=== PATIENT | female | born 1955 | race Caucasian/White ===

== ENCOUNTER 2016-09-08 21:24 | Emergency (ER) | payer OTHER ==
[~2016-09-08] VITALS: Ht 172.7 cm; Wt 56.8 kg
[~2016-09-08 21:24] MED LIST: CALC-507 PO; ERGO400T PO; GLUC100018 PO; LEVO112T4 PO; MULT-245 PO; OMEG1CAP6 PO; [UNRECOGNIZED DRUG - MIXTURE]
[2016-09-08 21:25] VITALS: BP 140/100
--- NOTE | 2016-09-09 07:47 | RAD ---
EXAM: Right fourth finger, 3 views. HISTORY: Trauma. COMPARISON: None. FINDINGS: Frontal, lateral and oblique views of the right finger are obtained. There is an ossicle along the dorsal aspect of the fourth proximal interphalangeal joint. No adjacent donor site is seen. There is surrounding soft tissue swelling. There are tiny ossicles along the ulnar aspect of the second distal interphalangeal joint, likely degenerative or the sequela of remote injury. IMPRESSION: Small ossicle along the dorsal aspect of the fourth proximal interphalangeal joint. This may be an avulsion fracture fragment of uncertain chronicity. Correlate for point tenderness in this region. There is surrounding soft tissue swelling. However, this also involves the second through fifth proximal and distal interphalangeal joints.
--- NOTE | 2016-09-09 19:50 | ED.ADGEN ---
Past History Past Medical History: Hypothyroid Past Surgical History: Other Alcohol Use: Occasionally Additional Alcohol Information: drinks wine daily Drug Use: None Adult General Chief Complaint Chief Complaint Ring finger injury HPI HPI Patient is a 61-year-old female presents with most right ring finger injury. Patient was walking her dog when it bolted catching the leash on her right ring finger. Patient reports feeling cracking sensation. Reports persistent diffuse right ring finger, pain swelling and tenderness localized over PIP joint. Denies other injury or complaint. Patient is not on anticoagulation therapy. Review of Systems Review of Systems ROS as per HPI. Allergies Allergies Allergies Coded Allergies Type Severity Reaction Last Updated Verified No Known Drug Allergies 03/24/15 No Physical Exam Physical Exam Constitutional: Well developed, well nourished, no acute distress, non-toxic appearance. [] HENT: Normocephalic, atraumatic, bilateral external ears normal, oropharynx moist, no oral exudates, nose normal. [] Eyes: PERRLA, EOMI, conjunctiva normal, no discharge. [] Neck: Normal range of motion, no tenderness, supple, no stridor. Cardiovascular:Heart rate regular rhythm, no murmur [] Lungs & Thorax: Bilateral breath sounds clear to auscultation Extremities: Right hand, ring finger, tenderness swelling with abrasion to dorsum of finger. No deformity or malalignment appreciated. Tenderness over PIP joint. Ring in place. Neurologic: Alert and oriented X 3, normal motor function, normal sensory function, no focal deficits noted. [] Psychologic: Affect normal, judgement normal, mood normal. [] Current Patient Data Vital Signs Vital Signs Date Time Temp Pulse Resp B/P Pulse Ox O2 Delivery O2 Flow Rate FiO2 09/08/16 21:25 97.8 69 16 95 Room Air EKG EKG [] Radiology/Procedures Radiology/Procedures [Right hand finger x-ray. Small avulsion fx over PIP.] Impressions: Right ring finger fx Course & Med Decision Making Course & Med Decision Making Pertinent Labs and Imaging studies reviewed. (See chart for details) [Isolated finger injury. Ring removed the nursing requested patient. Finger splinted.] Final Impression Final Impression [1. Right Fourth finger fracture] Problems: Dragon Disclaimer Dragon Disclaimer This electronic medical record was generated, in whole or in part, using a voice recognition dictation system. AMY GOLDMAN DO Sep 09, 2016 19:50
== END 2016-09-08 22:39 | disposition home or self-care (01) ==
LOC: ER 21:24
DX: S62.614A Displaced fracture of proximal phalanx of right ring finger, initial encounter for closed fracture (principal); E03.9 Hypothyroidism, unspecified; X58.XXXA Exposure to other specified factors, initial encounter; Y93.K1 Activity, walking an animal; Y99.8 Other external cause status; Y92.89 Other specified places as the place of occurrence of the external cause
CPT/HCPCS: 29130; 73140; 99284-25

== ENCOUNTER → 2020-12-27 | Outpatient (CLI) | payer MEDICARE, OTHER ==
--- NOTE | 2020-12-31 10:53 | RAD ---
DATE: 12/27/2020 EXAM: MAMMO ARLET SCREENING BILATERAL HISTORY: Screening COMPARISON: 06/28/2017, 07/11/2018, 06/26/2019 This study was interpreted with the benefit of Computerized Aided Detection (CAD). Breast Density: HETERO The breast parenchyma is heterogenously dense, which could reduce sensitivity of mammography. Breast parenchyma level C. FINDINGS: There is a 9 mm circumscribed nodule in the right breast slightly inferior and 1.7 cm posterior to the nipple on MLO view, likely localizing to 7:00 on CC view. There are 2 additional 5 mm circumscribed nodules in the right breast at 4:00 2 cm posterior to the nipple. No suspicious calcifications or architectural distortion. IMPRESSION: 3 nodules in the anterior right breast. Recommend spot compression CC and MLO views and possible ultrasound of the right breast to further evaluate. BI-RADS CATEGORY: 0 INCOMPLETE: NEEDS ADDITIONAL IMAGING EVALUATION AND/OR PRIOR MAMMOGRAMS FOR COMPARISON. RECOMMENDED FOLLOW-UP: ADD ADDITIONAL IMAGING PQRS compliance statement: Patient information was entered into a reminder system with a target due date for the next mammogram. Mammography is a sensitive method for finding small breast cancers, but it does not detect them all and is not a substitute for careful clinical examination. A negative mammogram does not negate a clinically suspicious finding and should not result in delay in biopsying a clinically suspicious abnormality. "Our facility is accredited by the [employer] Mammography Program."
== END ==
LOC: MAMMO 10:20
PROVIDERS: ATTEND Physician Assistant Medical
DX: Z12.31 Encounter for screening mammogram for malignant neoplasm of breast (principal)
CPT/HCPCS: 77063; 77067